=== PATIENT | male | born 1965 | race Caucasian/White ===

== ENCOUNTER → 2020-04-13 | Outpatient (CLI) | payer OTHER | END | disposition home or self-care (01) | LOC: LAB 14:44 | PROVIDERS: ATTEND Surgery | DX: Z11.59 Encounter for screening for other viral diseases (principal) | CPT/HCPCS: U0003-CS ==

== ENCOUNTER → 2020-04-17 | Day surgery (SDC) | payer OTHER ==
[~2020-04-17] MED LIST: ATOR20TA58 PO; IV RINGERS,LACTATED 1000ML 1,000 ML IV ONE; LIDOCAINE 2% PF 5 ML VIAL. ONE; LOSA100T14 PO; PROPOFOL 10 MG/ML (20ML) VIAL. IV ONE
[2020-04-17 13:50] VITALS: BP 144/88
== END ==
LOC: SURG 12:10
PROVIDERS: ATTEND Surgery
DX: Z12.11 Encounter for screening for malignant neoplasm of colon (principal); K63.89 Other specified diseases of intestine
CPT/HCPCS: 45378; J2704